=== PATIENT | female | born 1985 | race African-American/Black ===

== ENCOUNTER 2019-01-08 11:18 | Emergency (ER) | payer MEDICAID ==
[~2019-01-08] VITALS: Ht 157.5 cm; Wt 71.0 kg
[2019-01-08 13:28] LABS: CLARITY URINE CLEAR (CLEAR); COLOR URINE YELLOW (YELLOW); KETONES URINE NEGATIVE (NEGATIVE); LEUKOCYTE ESTERASE URINE NEGATIVE (NEGATIVE); NITRITE URINE NEGATIVE (NEGATIVE); OCCULT BLOOD URINE NEGATIVE (NEGATIVE); PH URINE 5.5 (4.5-8.0); PROTEIN URINE NEGATIVE (NEGATIVE); SPECIFIC GRAVITY URINE 1.022 (1.005-1.030); UROBILINOGEN URINE 0.2 E.U./dL (0.2-1.0)
[2019-01-08] MEDS ORDERED: ACETAMINOPHEN 325MG TABLET PO PRN (14:45)
[2019-01-08] MEDS ORDERED: METOCLOPRAMIDE HCL 10MG TABLET PO ONE (14:45)
[2019-01-08 15:08] LABS: BASOPHILS % 0.7 % (0.0-2.0); HEMATOCRIT. 34.9 % (36.0-48.0); HEMOGLOBIN. 11.8 g/dL (12.0-16.0); LYMPHOCYTES % 25.1 % (20.0-50.0); MEAN CORPUSCULAR HEMOGLOBIN 31.3 pg (28.0-32.0); MEAN CORPUSCULAR VOLUME 92.5 fL (81.0-99.0); MEAN PLATELET VOLUME 7.8 fl (7.4-10.4); NEUTROPHILS % 66.2 % (40.0-76.0); PLATELET 303 x1000/uL (130-400); RED BLOOD CELL COUNT 3.77 mill/uL (4.2-5.4); RED CELL DISTRIBUTION WIDTH 13.9 % (11.6-14.6)
[2019-01-08 15:12] LABS: CHLORIDE 110 mEq/L (98-107)
[2019-01-08 15:35] LABS: B-HCG QUANTITATIVE 18885 mIU/mL (<3)
[2019-01-08 16:55] VITALS: BP 112/64
== END 2019-01-08 17:00 | disposition home or self-care (01) ==
LOC: ER 11:18
DX: O46.92 Antepartum hemorrhage, unspecified, second trimester (principal); Z3A.15 15 weeks gestation of pregnancy
CPT/HCPCS: 36415; 76805; 80053; 81003; 81025; 84702; 85025; 86850; 86900; 86901; 99284; J8597

== ENCOUNTER 2019-03-16 15:36 | Observation (INO) | payer MEDICAID ==
[~2019-03-16] VITALS: Ht 154.9 cm; Wt 74.8 kg
[2019-03-16] MEDS ORDERED: ACETAMINOPHEN 500MG TABLET PO ONE (16:45)
== END 2019-03-16 17:35 | disposition home or self-care (01) ==
LOC: 8 EST LDRP 15:36
PROVIDERS: ADMIT Obstetrics & Gynecology; ATTEND Obstetrics & Gynecology
DX: O26.892 Other specified pregnancy related conditions, second trimester (principal); R10.2 Pelvic and perineal pain; Z3A.25 25 weeks gestation of pregnancy
CPT/HCPCS: 99281; G0378

== ENCOUNTER 2019-04-24 20:36 | Observation (INO) | payer MEDICAID ==
[~2019-04-24] VITALS: Ht 154.9 cm; Wt 84.4 kg
[~2019-04-24 20:36] MED LIST: FOLI0.4T2 PO; PNV1TABL50 PO
[2019-04-25] MEDS: LACTATED RINGERS 1,000 ML IV SCH ×3 (00:18→07:31)
[2019-04-25] MEDS ORDERED: DEXT 5%/LACTATED RINGERS 1,000 ML IV SCH (07:30)
[2019-04-25 08:09] LABS: BASOPHILS % 0.2 % (0.0-2.0); EOSINOPHILS % 0.9 % (0.0-5.0); HEMATOCRIT. 30.3 % (36.0-48.0); LYMPHOCYTES % 21.4 % (20.0-50.0); MEAN CORPUSCULAR HEMOGLOBIN 29.6 pg (28.0-32.0); MEAN CORPUSCULAR VOLUME 89.6 fL (81.0-99.0); MEAN PLATELET VOLUME 8.5 fl (7.4-10.4); MONOCYTES % 5.3 % (2.0-8.0); NEUTROPHILS % 72.2 % (40.0-76.0); PLATELET 279 x1000/uL (130-400); RED BLOOD CELL COUNT 3.38 mill/uL (4.2-5.4); RED CELL DISTRIBUTION WIDTH 12.9 % (11.6-14.6)
[2019-04-25 08:50] LABS: CLARITY URINE CLOUDY (CLEAR); COLOR URINE YELLOW (YELLOW); KETONES URINE NEGATIVE (NEGATIVE); LEUKOCYTE ESTERASE URINE 3+ (NEGATIVE); NITRITE URINE NEGATIVE (NEGATIVE); OCCULT BLOOD URINE 1+ (NEGATIVE); PH URINE 7.5 (4.5-8.0); PROTEIN URINE NEGATIVE (NEGATIVE); SPECIFIC GRAVITY URINE 1.011 (1.005-1.030); UROBILINOGEN URINE 0.2 E.U./dL (0.2-1.0)
[2019-04-25 09:29] LABS: CHLORIDE 107 mEq/L (98-107)
== END 2019-04-25 11:00 | disposition home or self-care (01) ==
LOC: 8 EST LDRP 20:36
PROVIDERS: ADMIT Obstetrics & Gynecology; ATTEND Obstetrics & Gynecology
DX: O42.913 Preterm premature rupture of membranes, unspecified as to length of time between rupture and onset of labor, third trimester (principal); O26.853 Spotting complicating pregnancy, third trimester; Z98.890 Other specified postprocedural states; Z3A.31 31 weeks gestation of pregnancy
CPT/HCPCS: 36415; 76805; 76818; 80053; 81003; 85025; 99281; G0378; J7120; 96360; 96361

== ENCOUNTER 2019-05-26 07:23 | Observation (INO) | payer MEDICAID ==
[~2019-05-26] VITALS: Ht 160 cm; Wt 88.9 kg
[2019-05-26] MEDS ORDERED: DEXT 5%/LACTATED RINGERS 1,000 ML IV SCH (08:15)
[2019-05-26] MEDS ORDERED: ACETAMINOPHEN 500MG TABLET PO NR (08:30)
[2019-05-26 08:53] LABS: CLARITY URINE CLEAR (CLEAR); COLOR URINE YELLOW (YELLOW); KETONES URINE NEGATIVE (NEGATIVE); LEUKOCYTE ESTERASE URINE 1+ (NEGATIVE); NITRITE URINE NEGATIVE (NEGATIVE); OCCULT BLOOD URINE NEGATIVE (NEGATIVE); PROTEIN URINE NEGATIVE (NEGATIVE); UROBILINOGEN URINE 0.2 E.U./dL (0.2-1.0)
== END 2019-05-26 10:11 | disposition home or self-care (01) ==
LOC: 8 EST LDRP 07:23
PROVIDERS: ADMIT Obstetrics & Gynecology; ATTEND Obstetrics & Gynecology
DX: O62.9 Abnormality of forces of labor, unspecified (principal); O26.893 Other specified pregnancy related conditions, third trimester; R10.9 Unspecified abdominal pain; Z3A.00 Weeks of gestation of pregnancy not specified
CPT/HCPCS: 81003; 99281; G0378; J7121

== ENCOUNTER 2019-06-06 19:05 | Observation (INO) | payer MEDICAID ==
[~2019-06-06] VITALS: Ht 154.9 cm; Wt 90.7 kg
[2019-06-06] MEDS ORDERED: FERR-71 MT (19:56)
[2019-06-06] MEDS ORDERED: ACETAMINOPHEN 500MG TABLET PO SCH (20:15)
[2019-06-06 20:25] LABS: CLARITY URINE TURBID (CLEAR); COLOR URINE YELLOW (YELLOW); KETONES URINE NEGATIVE (NEGATIVE); LEUKOCYTE ESTERASE URINE 3+ (NEGATIVE); NITRITE URINE NEGATIVE (NEGATIVE); OCCULT BLOOD URINE 1+ (NEGATIVE); PROTEIN URINE 1+ (NEGATIVE); SPECIFIC GRAVITY URINE 1.025 (1.005-1.030); UROBILINOGEN URINE 0.2 E.U./dL (0.2-1.0)
[2019-06-06] MEDS ORDERED: TERBUTALINE SULFATE 1MG/ML VIAL SUBCUT PRN (20:45)
[2019-06-06] MEDS ORDERED: LACTATED RINGERS 1,000 ML IV SCH (20:45)
[2019-06-06] MEDS ORDERED: ONDANSETRON HCL 4MG/2ML INJ IV NR (20:45)
== END 2019-06-06 22:25 | disposition home or self-care (01) ==
LOC: ER 19:05 → 8 EST LDRP 19:10
PROVIDERS: ADMIT Obstetrics & Gynecology; ATTEND Obstetrics & Gynecology
DX: O26.893 Other specified pregnancy related conditions, third trimester (principal); M54.5 Low back pain; R10.30 Lower abdominal pain, unspecified; R19.7 Diarrhea, unspecified; O21.9 Vomiting of pregnancy, unspecified; Z3A.37 37 weeks gestation of pregnancy
CPT/HCPCS: 81003; 87086; 96361; 96372; 96374; G0378; J2405; J3105; 96360; 99281

== ENCOUNTER 2019-06-15 18:45 | Inpatient (IN) | payer MEDICAID ==
[~2019-06-15] VITALS: Ht 154.9 cm; Wt 92.1 kg
[~2019-06-15 18:45] MED LIST changes: +FERR-71 MT
[2019-06-15 21:35] LABS: CLARITY URINE TURBID (CLEAR); COLOR URINE YELLOW (YELLOW); KETONES URINE TRACE (NEGATIVE); LEUKOCYTE ESTERASE URINE 2+ (NEGATIVE); NITRITE URINE NEGATIVE (NEGATIVE); OCCULT BLOOD URINE 1+ (NEGATIVE); PROTEIN URINE 1+ (NEGATIVE); SPECIFIC GRAVITY URINE 1.024 (1.005-1.030)
[2019-06-16] MEDS ORDERED: DEXT 5%/LACTATED RINGERS 1,000 ML IV SCH (00:19)
[2019-06-16] MEDS ORDERED: CARBOPROST TROMETHAMINE 250 MCG/ML AMPUL IM PRN (00:30)
[2019-06-16] MEDS ORDERED: MISOPROSTOL 200MCG TABLET VG SCH (00:30)
[2019-06-16] MEDS ORDERED: METHYLERGONOVINE MALEATE 0.2 MG/ML IM PRN (00:30)
[2019-06-16] MEDS ORDERED: LIDOCAINE HCL 1% 20ML VIAL (Pyxis) INJ INFIL SCH (00:30)
[2019-06-16] MEDS ORDERED: BUTORPHANOL TARTRATE 2 MG/ML VIAL IV PRN (00:30)
[2019-06-16] MEDS: MISOPROSTOL 100MCG TABLET VG SCH ×2 (02:18→06:31)
[2019-06-16 02:30] LABS: BASOPHILS % 0.5 % (0.0-2.0); EOSINOPHILS % 0.3 % (0.0-5.0); HEMATOCRIT. 31.3 % (36.0-48.0); HEMOGLOBIN. 10.5 g/dL (12.0-16.0); LYMPHOCYTES % 22.5 % (20.0-50.0); MEAN CORPUSCULAR HEMOGLOBIN 30.2 pg (28.0-32.0); MEAN CORPUSCULAR VOLUME 89.5 fL (81.0-99.0); MONOCYTES % 8.1 % (2.0-8.0); NEUTROPHILS % 68.6 % (40.0-76.0); PLATELET 290 x1000/uL (130-400); RED BLOOD CELL COUNT 3.49 mill/uL (4.2-5.4)
[2019-06-16 02:33] LABS: INR 0.9; PARTIAL THROMBOPLASTIN TIME 27.1 sec (23.4-31.0); PROTHROMBIN TIME 9.3 sec (9.6-11.0)
[2019-06-16 02:36] LABS: CHLORIDE 109 mEq/L (98-107)
[2019-06-16] MEDS ORDERED: CITRIC ACID/SODIUM CITRATE SOLN 30ML UDC PO NR (07:15)
[2019-06-16] MEDS ORDERED: OXYTOCIN 10 UNITS/ML 1ML ONE ×2 (07:36→08:38)
[2019-06-16] MEDS ORDERED: CEFAZOLIN SODIUM 1000MG/VIAL ONE (07:36)
[2019-06-16] MEDS ORDERED: KETOROLAC 60MG/2ML VIAL IM ONE (07:36)
[2019-06-16] MEDS ORDERED: SODIUM CHLORIDE 0.9% 10ML VIAL ONE (07:36)
[2019-06-16] MEDS ORDERED: PHENYLEPHRINE HCL 10 MG/ML 1ML (IV VIAL) IV ONE (07:36)
[2019-06-16] MEDS ORDERED: ONDANSETRON HCL 4MG/2ML INJ ONE (07:37)
[2019-06-16] MEDS ORDERED: METOCLOPRAMIDE HCL 10MG/2ML VIAL ONE (07:37)
[2019-06-16] MEDS ORDERED: FENTANYL CITRATE/PF 50MCG/ML 2ML VIAL ONE (07:43)
[2019-06-16] MEDS ORDERED: MORPHINE SULFATE/PF 1MG/ML 10ML AMP ONE (07:44)
[2019-06-16] MEDS ORDERED: BUPIVACAINE HCL/PF 0.5% (5MG/ML) 10ML ONE (07:46)
[2019-06-16] MEDS ORDERED: CEFAZOLIN 2,000 MG in DEXT 5% WATER 100 ML IV SCH (08:30)
[2019-06-16] MEDS ORDERED: DIPHENHYDRAMINE 50MG/ML VIAL IM PRN (09:15)
[2019-06-16] MEDS ORDERED: KETOROLAC 30MG/ML VIAL IV PRN (09:15)
[2019-06-16] MEDS ORDERED: NALOXONE HCL 0.4 MG/ML 1ML VIAL IV PRN (09:15)
[2019-06-16] MEDS ORDERED: ONDANSETRON HCL 4MG/2ML INJ IM PRN (09:15)
[2019-06-16 11:30] VITALS: BP 107/68
[2019-06-16 16:00] VITALS: BP 111/57
[2019-06-16] MEDS ORDERED: LACTATED RINGERS 1,000 ML IV SCH (16:30)
[2019-06-16] MEDS ORDERED: ACETAMINOPHEN 325MG TABLET PO PRN (16:30)
[2019-06-16] MEDS ORDERED: CAFFEINE 200MG TABLET PO NR (16:30)
[2019-06-16 22:00] VITALS: BP 119/59
[2019-06-17] MEDS ORDERED: DEXT 5%/LR + PITOCIN 20UNITS/L 1,000 ML IV SCH (02:45)
[2019-06-17 04:00] VITALS: BP 121/61
[2019-06-17 06:00] VITALS: BP 115/68
[2019-06-17 07:30] VITALS: BP 112/64
[2019-06-17] MEDS: IBUPROFEN 800MG TABLET PO PRN (13:40)
[2019-06-17] MEDS: SIMETHICONE 80MG TABLET CHEW PO SCH ×2 (13:41→21:37)
[2019-06-17 14:00] VITALS: BP 114/64
[2019-06-17 16:11] LABS: BASOPHILS % 0.2 % (0.0-2.0); EOSINOPHILS % 0.7 % (0.0-5.0); HEMATOCRIT. 30.5 % (36.0-48.0); HEMOGLOBIN. 10.2 g/dL (12.0-16.0); LYMPHOCYTES % 15.2 % (20.0-50.0); MEAN CORPUSCULAR HEMOGLOBIN 30.2 pg (28.0-32.0); MEAN CORPUSCULAR VOLUME 89.9 fL (81.0-99.0); MEAN PLATELET VOLUME 8.6 fl (7.4-10.4); MONOCYTES % 6.3 % (2.0-8.0); NEUTROPHILS % 77.6 % (40.0-76.0); PLATELET 288 x1000/uL (130-400); RED BLOOD CELL COUNT 3.39 mill/uL (4.2-5.4); RED CELL DISTRIBUTION WIDTH 15.2 % (11.6-14.6)
[2019-06-17 20:00] VITALS: BP 136/80
[2019-06-17 23:47] VITALS: BP 133/73
[2019-06-18 04:38] VITALS: BP 132/72
[2019-06-18 07:59] VITALS: BP 123/60
[2019-06-18] MEDS ORDERED: DOCUSATE SODIUM 100MG CAPSULE PO SCH (09:00)
[2019-06-18] MEDS: SIMETHICONE 80MG TABLET CHEW PO SCH (09:18)
[2019-06-18] MEDS: IBUPROFEN 800MG TABLET PO PRN (09:19)
== END 2019-06-18 12:30 | disposition home or self-care (01) | DRG 540 ==
LOC: OBSVTOIN 18:45 → 8 EST LDRP 18:45 → 8 EST A/PP 06-16 11:15
PROVIDERS: ADMIT Obstetrics & Gynecology; ATTEND Obstetrics & Gynecology
PROC: 10D00Z1 Extraction of Products of Conception, Low, Open Approach (ICD-10-PCS; principal; 2019-06-15)
DX: O99.344 Other mental disorders complicating childbirth (principal); K83.1 Obstruction of bile duct; Z37.0 Single live birth; O26.62 Liver and biliary tract disorders in childbirth; F32.89 Other specified depressive episodes; Z3A.38 38 weeks gestation of pregnancy; O76 Abnormality in fetal heart rate and rhythm complicating labor and delivery; D64.9 Anemia, unspecified; Z96.643 Presence of artificial hip joint, bilateral; O90.81 Anemia of the puerperium
CPT/HCPCS: 36415; 76815; 76818; 81003; 86592; 86703; 86762; 86850; 86900; 87340; 88307; J0690; J1885; J2274; J2370; J2405; J2590; J2765; J3010; J3490; J7060; J7121; A4315

== ENCOUNTER 2024-11-28 09:31 | Emergency (ER) | payer MEDICAID ==
[~2024-11-28] VITALS: Ht 154.9 cm; Wt 55.5 kg
[~2024-11-28 09:31] MED LIST changes: -FOLI0.4T2 PO; -PNV1TABL50 PO
[2024-11-28 09:37] VITALS: O2SAT 99
[2024-11-28 10:05] VITALS: BP 101/64; PULSE 118; RESP 14; TEMP 36.8; O2SAT 100
[2024-11-28] MEDS: KETOROLAC 30MG/ML VIAL IM ONE (11:41)
[2024-11-28] MEDS: HYDROCODONE/ACETAMINOPHEN 5/325MG TABLET PO ONE (11:51)
[2024-11-28] MEDS ORDERED: T3 PO (12:33)
[2024-11-28] MEDS ORDERED: IBUP-2029 MT (12:33)
== END 2024-11-28 12:50 | disposition home or self-care (01) ==
LOC: ER 09:31
DX: M25.562 Pain in left knee (principal)
CPT/HCPCS: 73560; 29505; 99283; Z7610; L1830; J1885